=== PATIENT | male | born 1950 | race Caucasian/White ===

== ENCOUNTER 2017-01-23 13:56 | Emergency (ER) | payer OTHER ==
[~2017-01-23] VITALS: Ht 180.3 cm; Wt 92.5 kg
[~2017-01-23 13:56] MED LIST: BUME2TAB4 PO; CHOL100030 PO; LEVO88TA5 PO; POTA20TA83 PO; TIMO1DRO2 OP
--- NOTE | 2017-01-23 14:06 | NUR ---
Pt ambulatory to bed 2a, dr shaikh at bedside for exam.
[2017-01-23] MEDS ORDERED: HYDROCODONE/APAP 10-325 MG TABLET PO ONE (14:15)
[2017-01-23] MEDS ORDERED: CEPHALEXIN MONOHYDRATE 500 MG CAPSULE PO ONE (14:15)
[2017-01-23] MEDS ORDERED: CEPHALEXIN MONOHYDRATE 500 MG CAPSULE ONE (14:23)
[2017-01-23] MEDS ORDERED: HYDROCODONE/APAP 10-325 MG TABLET ONE (14:23)
[2017-01-23] MEDS ORDERED: SULFAMETH/TRIMETH 800/160 MG TABLET ONE (14:25)
[2017-01-23] MEDS ORDERED: SULFAMETH/TRIMETH 800/160 MG TABLET PO ONE (14:30)
--- NOTE | 2017-01-23 14:40 | NUR ---
POST OP SHOES AND HOSPITAL SOCKS PLACED ON THE LEFT FOOT PER MD ORDER.
--- NOTE | 2017-01-23 14:59 | NUR ---
Patient discharged to home in stable conditon. Written and verbal after care instructions given. Patient verbalizes understanding of instructions.PT WALKS IN STEADY GAIT.
== END 2017-01-23 15:00 | disposition home or self-care (01) ==
LOC: ER 13:56
DX: L03.116 Cellulitis of left lower limb (principal); E11.40 Type 2 diabetes mellitus with diabetic neuropathy, unspecified; F19.10 Other psychoactive substance abuse, uncomplicated
CPT/HCPCS: 73630; A4663

== ENCOUNTER 2017-01-24 14:05 | Outpatient (CLI) | payer MEDICARE, OTHER ==
[2017-01-24 14:52] LABS: ALBUMIN 4.2 g/dL (3.4-5.0); BILIRUBIN,TOTAL 0.5 mg/dL (0.2-1.0); CALCIUM 9.3 mg/dL (8.5-10.1); POTASSIUM 4.8 mmol/L (3.5-5.1); TOTAL PROTEIN, SERUM 8.1 g/dL (6.4-8.2)
[2017-01-24 14:53] LABS: CREATININE 2.2 mg/dL (0.6-1.3)
[2017-01-24 15:13] LABS: BASOPHILS # (AUTO) 0.1 K/uL (0.0-0.2); BASOPHILS % (AUTO) 0.5 % (0.0-2.0); EOSINOPHILS # (AUTO) 0.1 K/uL (0.0-0.7); HEMATOCRIT 39.3 % (40.0-50.0); HEMOGLOBIN 12.8 g/dL (14.0-18.0); LYMPHOCYTES # (AUTO) 1.8 K/uL (0.8-4.8); LYMPHOCYTES % (AUTO) 16.4 % (20.5-51.5); MEAN CORPUSCULAR HEMOGLOBIN 31.2 uug (27.0-31.0); MEAN CORPUSCULAR HGB CONC 33 g/dL (32.0-37.0); MEAN CORPUSCULAR VOLUME 96.2 fL (82.0-92.0); MONOCYTES # (AUTO) 1.1 K/uL (0.1-1.30); MONOCYTES % (AUTO) 10.1 % (0.0-11.0); PLATELET COUNT (AUTO) 300 K/uL (150-450); RED BLOOD CELL COUNT(AUTO) 4.08 MIL/uL (4.70-6.10); RED CELL DISTRIBUTION WIDTH 12.2 % (11.5-14.5); WHITE BLOOD COUNT (AUTO) 11.1 K/uL (4.0-11.2)
== END 2017-01-24 23:59 | disposition home or self-care (01) ==
LOC: LAB 14:05
DX: E11.9 Type 2 diabetes mellitus without complications (principal); L03.90 Cellulitis, unspecified
CPT/HCPCS: 36415; 85025

== ENCOUNTER 2017-02-15 12:18 | Emergency (ER) | payer MEDICARE, OTHER ==
[~2017-02-15] VITALS: Ht 180.3 cm; Wt 83.5 kg
[2017-02-15] MEDS ORDERED: METF10002 PO (12:33)
[2017-02-15] MEDS ORDERED: NAPR500T3 PO (12:33)
[2017-02-15] MEDS ORDERED: BUPR1FIL SL (12:33)
[2017-02-15] MEDS ORDERED: CHOL10005 PO (12:33)
[2017-02-15] MEDS ORDERED: POTA20PA3 PO (12:34)
--- NOTE | 2017-02-15 13:06 | NUR ---
PT IS SITTING ON THE BED READING HIS BOOK, AWAITING TO BE SEEN BY .
--- NOTE | 2017-02-15 14:29 | NUR ---
DR ZHOU AT THE BEDSIDE FOR EVAL AND EXAM.
[2017-02-15 15:00] LABS: BASOPHILS % (AUTO) 0.5 % (0.0-2.0); EOSINOPHILS # (AUTO) 0.1 K/uL (0.0-0.7); EOSINOPHILS % (AUTO) 0.8 % (0.0-7.0); MEAN CORPUSCULAR HGB CONC 33 g/dL (32.5-36.3); MEAN CORPUSCULAR VOLUME 95.8 fL (73.0-96.2); MONOCYTES # (AUTO) 0.6 K/uL (2.0-10.0); MONOCYTES % (AUTO) 6.5 % (0.0-11.0); NEUTROPHILS # (AUTO) 7.1 K/uL (1.8-8.9); NEUTROPHILS % (AUTO) 72.2 % (38.5-71.5); PLATELET COUNT (AUTO) 332 K/uL (152-348); RED CELL DISTRIBUTION WIDTH 13.8 % (12.1-16.2); WHITE BLOOD COUNT (AUTO) 9.8 K/uL (3.6-10.2)
[2017-02-15 15:02] LABS: CALCIUM 9.1 mg/dL (8.5-10.1); POTASSIUM 4.1 mmol/L (3.5-5.1)
[2017-02-15 15:03] LABS: CREATININE 1.7 mg/dL (0.6-1.3)
[2017-02-15 15:09] LABS: RED BLOOD CELL COUNT(AUTO) 2.08 MIL/uL (4.06-5.63)
[2017-02-15 15:12] LABS: HEMOGLOBIN 6.7 g/dL (12.5-16.3)
[2017-02-15 15:13] LABS: HEMATOCRIT 19.9 % (36.7-47.1)
[2017-02-15 15:17] LABS: ALBUMIN 3.9 g/dL (3.4-5.0); BILIRUBIN,DIRECT 0.1 mg/dL (0.0-0.2); BILIRUBIN,TOTAL 0.4 mg/dL (0.2-1.0); TOTAL PROTEIN, SERUM 7.1 g/dL (6.4-8.2)
[2017-02-15 15:47] LABS: BAND % (MANUAL) 2 % (0-10); EOSINOPHILS % (MANUAL) 1 % (0-8); LYMPHOCYTES % (MANUAL) 16 % (20-40); MONOCYTES % (MANUAL) 8 % (2-10); NEUTROPHILS % (MANUAL) 73 % (42-75); PLATELET ESTIMATE ADEQUATE
--- NOTE | 2017-02-15 16:18 | NUR ---
Patient discharged to home in stable conditon. Written and verbal after care instructions given. Patient verbalizes understanding of instructions.
[2017-02-15 16:19] VITALS: BP 120/55
[2017-02-15 17:29] LABS: FOLIC ACID 11.1 NG/ML (8.6-58.9)
== END 2017-02-15 16:20 | disposition home or self-care (01) ==
LOC: ER 12:18
DX: D64.9 Anemia, unspecified (principal); F19.10 Other psychoactive substance abuse, uncomplicated; E11.9 Type 2 diabetes mellitus without complications
CPT/HCPCS: 36415; 70030-TC; 71010; 82746; 83550; 85025; 85730; 86850; 86900; 86901; 93005; A4663

== ENCOUNTER 2017-02-16 12:46 | Inpatient (IN) | payer MEDICARE, OTHER ==
[~2017-02-16] VITALS: Ht 177.8 cm; Wt 83.5 kg
[2017-02-16] VITALS (11 sets, daily range): BP systolic 109–122; BP diastolic 52–68
[~2017-02-16 12:46] MED LIST changes: +BUPR1FIL SL; +CHOL10005 PO; +METF10002 PO; +NAPR500T3 PO; +POTA20PA3 PO
[2017-02-16] MEDS ORDERED: IV NORMAL SALINE 1000 ML BAG IV ONE (13:15)
--- NOTE | 2017-02-16 13:17 | NUR ---
Pt ambulatory to bed 3, dr waters at bedside for exam.
--- NOTE | 2017-02-16 13:17 | NUR ---
ekg. cxr done.
[2017-02-16] MEDS ORDERED: MORPHINE SULFATE 2 MG/1 ML DISP.SYRIN IV PRN ×2 (13:30→14:00)
[2017-02-16] MEDS ORDERED: ACETAMINOPHEN 325 MG TABLET PO PRN ×2 (13:30→14:00)
[2017-02-16] MEDS ORDERED: ONDANSETRON 4 MG/2 ML VIAL IV PRN ×2 (13:30→14:00)
[2017-02-16] MEDS ORDERED: INSULIN REGULAR, HUMAN 300 UNIT/3 ML VIAL SQ PRN (13:30)
[2017-02-16] MEDS ORDERED: DEXTROSE 50% 50 ML DISP.SYRIN IV PRN ×2 (13:30→14:00)
[2017-02-16 13:43] LABS: BASOPHILS % (AUTO) 0.4 % (0.0-2.0); EOSINOPHILS # (AUTO) 0.1 K/uL (0.0-0.7); EOSINOPHILS % (AUTO) 1.4 % (0.0-7.0); LYMPHOCYTES % (AUTO) 19.1 % (20.5-51.5); MEAN CORPUSCULAR HEMOGLOBIN 31.8 uug (23.8-33.4); MEAN CORPUSCULAR HGB CONC 33 g/dL (32.5-36.3); MEAN CORPUSCULAR VOLUME 96.3 fL (73.0-96.2); MONOCYTES # (AUTO) 0.8 K/uL (2.0-10.0); MONOCYTES % (AUTO) 7.5 % (0.0-11.0); NEUTROPHILS # (AUTO) 7.4 K/uL (1.8-8.9); NEUTROPHILS % (AUTO) 71.6 % (38.5-71.5); PLATELET COUNT (AUTO) 324 K/uL (152-348); WHITE BLOOD COUNT (AUTO) 10.3 K/uL (3.6-10.2)
[2017-02-16 13:46] LABS: CALCIUM 8.9 mg/dL (8.5-10.1); POTASSIUM 3.6 mmol/L (3.5-5.1)
--- NOTE | 2017-02-16 13:47 | NUR ---
Dede hooper in ED - 02/16/17 at 1357 by JOSÉ Patient discharged to home in stable conditon. Written and verbal after care instructions given. Patient verbalizes understanding of instructions.
[2017-02-16 13:50] LABS: CREATININE 1.7 mg/dL (0.6-1.3)
[2017-02-16 13:52] LABS: RED BLOOD CELL COUNT(AUTO) 1.93 MIL/uL (4.06-5.63)
[2017-02-16 13:53] LABS: HEMATOCRIT 18.5 % (36.7-47.1); HEMOGLOBIN 6.1 g/dL (12.5-16.3)
[2017-02-16 13:59] LABS: ALBUMIN 3.9 g/dL (3.4-5.0); BILIRUBIN,TOTAL 0.5 mg/dL (0.2-1.0); MAGNESIUM 1.7 mg/dL (1.8-2.4); PHOSPHOROUS 2.6 mg/dL (2.5-4.9)
[2017-02-16 14:18] LABS: *BILIRUBIN,URIN NEGATIVE (NEGATIVE); *BLOOD, URINE NEGATIVE (NEGATIVE); *CLARITY,URINE CLEAR (CLEAR); *COLOR,URINE YELLOW (YELLOW); *KETONES,URINE NEGATIVE (NEGATIVE); *PROTEIN,URINE NEGATIVE (NEGATIVE); *UROBILINOGEN,URINE 0.2 E.U./dl (NORMAL); LEUKOCYTE ESTERASE ,URINE NEGATIVE (NEGATIVE); NITRITE, URINE NEGATIVE (NEGATIVE); PH,URINE 5.5 (5.0-8.0); UGLUCOSE NEGATIVE (NEGATIVE)
[2017-02-16 14:19] LABS: EOSINOPHILS % (MANUAL) 2 % (0-8); LYMPHOCYTES % (MANUAL) 16 % (20-40); MONOCYTES % (MANUAL) 8 % (2-10); NEUTROPHILS % (MANUAL) 74 % (42-75); PLATELET ESTIMATE ADEQUATE
[2017-02-16 14:26] LABS: SQUAMOUS EPITHELIAL CELL,UR FEW /HPF (NONE SEEN)
[2017-02-16 14:27] LABS: MUCUS,URINE FEW /LPF (0-FEW)
--- NOTE | 2017-02-16 14:45 | NUR ---
NEW ADMISSION TO ROOM 220. PATIENT ALERT, AWAKE IN NO ACUTE DISTRESS.
[2017-02-16] MEDS: HYDROMORPHONE 1 MG/1 ML DISP.SYRIN IV PRN ×2 (15:08→21:09)
[2017-02-16] MEDS ORDERED: IPRATROPIUM BROMIDE 0.5 MG/2.5 ML NEBU NEB PRN (15:15)
[2017-02-16] MEDS ORDERED: ALBUTEROL SULFATE 2.5 MG/3 ML NEBU NEB PRN (15:15)
[2017-02-16] MEDS ORDERED: ALBUTEROL SULFATE 2.5 MG/ 0.5 ML NEBU NEB PRN (15:15)
[2017-02-16] MEDS ORDERED: MAGNESIUM SULFATE/D5W 100 ML IV SCH (15:15)
[2017-02-16] MEDS: IV 1/2NS 1000 ML 1,000 ML IV PRN (16:03)
[2017-02-16] MEDS: AZITHROMYCIN IV 500 MG in IV DEXTROSE 5% 250 ML IV SCH (16:08)
[2017-02-16] MEDS ORDERED: BLOOD SUGAR DIAGNOSTIC 1 EACH STRIP VI SCH (16:30)
[2017-02-16] MEDS ORDERED: Medication Not On Formulary EA (Metformin Hcl 1,000 MG) PO SCH (17:00)
[2017-02-16] MEDS: BLOOD SUGAR DIAGNOSTIC 1 EACH STRIP VI SCH ×2 (17:23→21:17)
[2017-02-16] MEDS ORDERED: METFORMIN HCL 500 MG TABLET PO SCH (18:00)
--- NOTE | 2017-02-16 18:26 | NUR ---
END OF SHIFT NOTE: PATIENT RECEIVING SECOND UNIT OF BLOOD NO A/Rs OBSERVED AT THIS TIME. VSS. YEBOAH IMPROVED. NO S/S OF DISTRESS OBSERVED. INDEPENDENT WITH ADLs. NEEDS MET BY STAFF.
[2017-02-16 20:37] LABS: *OCCULT BLOOD STOOL POSITIVE (NEGATIVE)
[2017-02-16] MEDS ORDERED: TIMOLOL MALEATE OP SCH ×2 (21:00)
[2017-02-16] MEDS ORDERED: TIMOLOL MALEATE XE 0.5% OPHT 5 ML BOTTLE EACHEYE SCH (21:00)
[2017-02-16] MEDS ORDERED: [UNRECOGNIZED DRUG - OTHER] OP SCH ×2 (21:00)
[2017-02-16 23:32] LABS: HEMATOCRIT 23.3 % (36.7-47.1); HEMOGLOBIN 7.9 g/dL (12.5-16.3)
--- NOTE | 2017-02-17 02:00 | NUR ---
PT TOLERATING THE 2ND UNIT OF BLOOD TRANSFUSION, NO ADVERSE EFFECTS, VSS,AFEBRILE. STOOL SEND AND RESULTED POSITIVE OCCULT BLOOD, POST TRANSFUSION HEMOGLOBIN IS 7.9. WILL NOTIFY MD IN AM, WILL CONTINUE TO MONITOR.
[2017-02-17] MEDS: HYDROMORPHONE 1 MG/1 ML DISP.SYRIN IV PRN ×4 (02:58→21:01)
[2017-02-17 04:56] VITALS: BP 102/61
[2017-02-17] MEDS ORDERED: LEVOTHYROXINE SODIUM 88 MCG TABLET PO SCH ×2 (07:00)
--- NOTE | 2017-02-17 07:00 | NUR ---
PT SLEPT WELL, VSS, AFEBRILE, NO ACUTE DISTRESS, NO MORE BM NOTED, MEDICATED WITH DILAUDID FOR HEADACHE WITH GOOD RELIEF.ALL NEEDS ATTENDED, CALL LIGHT AT REACHED.
[2017-02-17] MEDS: IV 1/2NS 1000 ML 1,000 ML IV PRN (07:10)
[2017-02-17] MEDS: PANTOPRAZOLE SODIUM 40 MG TABLET.DR PO SCH (07:10)
[2017-02-17] MEDS: BLOOD SUGAR DIAGNOSTIC 1 EACH STRIP VI SCH ×4 (07:13→20:55)
[2017-02-17 07:16] LABS: BASOPHILS % (AUTO) 0.5 % (0.0-2.0); EOSINOPHILS # (AUTO) 0.3 K/uL (0.0-0.7); LYMPHOCYTES # (AUTO) 2.3 K/uL (20.0-40.0); LYMPHOCYTES % (AUTO) 26.3 % (20.5-51.5); MEAN CORPUSCULAR HEMOGLOBIN 32.3 uug (23.8-33.4); MEAN CORPUSCULAR HGB CONC 34 g/dL (32.5-36.3); MEAN CORPUSCULAR VOLUME 94.7 fL (73.0-96.2); MONOCYTES # (AUTO) 0.9 K/uL (2.0-10.0); MONOCYTES % (AUTO) 10.1 % (0.0-11.0); NEUTROPHILS # (AUTO) 5.1 K/uL (1.8-8.9); NEUTROPHILS % (AUTO) 60.1 % (38.5-71.5); PLATELET COUNT (AUTO) 261 K/uL (152-348); RED CELL DISTRIBUTION WIDTH 15.3 % (12.1-16.2); WHITE BLOOD COUNT (AUTO) 8.6 K/uL (3.6-10.2)
[2017-02-17 07:29] LABS: ALBUMIN 3.2 g/dL (3.4-5.0); BILIRUBIN,TOTAL 0.7 mg/dL (0.2-1.0); CALCIUM 8.1 mg/dL (8.5-10.1); PHOSPHOROUS 2.9 mg/dL (2.5-4.9); POTASSIUM 3.9 mmol/L (3.5-5.1); TOTAL PROTEIN, SERUM 6.1 g/dL (6.4-8.2)
[2017-02-17 07:30] LABS: CREATININE 1.5 mg/dL (0.6-1.3)
[2017-02-17 07:38] LABS: THYROID STIMULATING HORMONE 6.467 mIU/mL (0.358-3.740)
[2017-02-17] MEDS ORDERED: GOLYTELY 4000 ML BOTTLE PO ONE (08:00)
[2017-02-17 08:25] LABS: HEMATOCRIT 21.1 % (36.7-47.1); HEMOGLOBIN 7.2 g/dL (12.5-16.3); RED BLOOD CELL COUNT(AUTO) 2.23 MIL/uL (4.06-5.63)
[2017-02-17] MEDS ORDERED: PANTOPRAZOLE SODIUM 40 MG TABLET.DR PO SCH (09:00)
[2017-02-17] MEDS ORDERED: CHOLECALCIFEROL 1,000 UNIT TABLET PO SCH (09:00)
[2017-02-17] MEDS: CHOLECALCIFEROL 1,000 UNIT TABLET PO SCH (09:27)
[2017-02-17] MEDS: METFORMIN HCL 500 MG TABLET PO SCH ×2 (11:30→18:00)
[2017-02-17 11:53] VITALS: BP 130/64
[2017-02-17 13:42] VITALS: BP 125/60
[2017-02-17 13:57] VITALS: BP 120/70
[2017-02-17 14:12] VITALS: BP 124/75
--- NOTE | 2017-02-17 14:28 | NUR ---
WOUND CARE CONSULT: PT PRESENTS AMBULATORY WITH TINY CALLUS ON LEFT PLANTAR TOE. NO DRAINAGE, TENDERNESS OR REDNESS NOTED. WILL SEE PRN. Addendum: 02/17/17 at 1429 by BRITTANY FONSECA RN Amended: Links added.
--- NOTE | 2017-02-17 14:50 | NUR ---
Patient unable to complete GoLytely. Patient continously encouraged and continues to state, "I can't drink that much".Patient becomes agitated on redirection.
[2017-02-17 17:02] LABS: HEMATOCRIT 27.9 % (36.7-47.1)
[2017-02-17 17:09] LABS: HEMOGLOBIN 9.4 g/dL (12.5-16.3)
[2017-02-17] MEDS: AZITHROMYCIN IV 500 MG in IV DEXTROSE 5% 250 ML IV SCH (17:42)
--- NOTE | 2017-02-17 18:32 | NUR ---
GLUCOPHAGE HELD. NO COVERAGE GIVEN FOR 137 BS. PATIENT NPO FOR EGD.
--- NOTE | 2017-02-17 20:00 | NUR ---
RECEIVED PATIENT AWAKE, SITTING AT BEDSIDE. PATIENT IS A/O X4. PATIENT VERBALIZED REGARDING SCHEDULED EGD AND COLONOSCOPY THAT HE WILL DO THE "EGD" IN AM BUT WILL NOT SIGN THE CONSENT FOR COLONOSCOPY UNTIL AFTER THE EGD IS DONE AND COMPLETE. PATIENT IS UNSURE ABOUT DOING THE "COLONOSCOPY" AT THIS TIME. FORESTRY SCIENTIST NOTIFIED. PATIENT AWARE HE WILL BE NPO AFTER MIDNIGHT. VERBALIZED UNDERSTANDING. WILL CONTINUE TO MONITOR. VSS. IVF INFUSING WELL TO RIGHT FA #20 GAUGE. NO C/O PAIN OR DISCOMFORT AT THIS TIME. NO RESP. DISTRESS NOTED. CALL LIGHT IN REACH. ALL NEEDS ATTENDED. WILL CONTINUE TO MONITOR.
[2017-02-17 20:32] VITALS: BP 110/63
[2017-02-17] MEDS: TIMOLOL MALEATE XE 0.5% OPHT 5 ML BOTTLE EACHEYE SCH (20:54)
[2017-02-17] MEDS: INSULIN REGULAR, HUMAN 300 UNIT/3 ML VIAL SQ PRN (20:56)
[2017-02-17 21:51] LABS: HEMATOCRIT 27.2 % (36.7-47.1); HEMOGLOBIN 9.1 g/dL (12.5-16.3)
[2017-02-18] MEDS: HYDROMORPHONE 1 MG/1 ML DISP.SYRIN IV PRN ×4 (03:39→22:07)
[2017-02-18] MEDS: IV 1/2NS 1000 ML 1,000 ML IV PRN (05:07)
[2017-02-18 05:39] VITALS: BP 112/63
[2017-02-18] MEDS: PANTOPRAZOLE SODIUM 40 MG TABLET.DR PO SCH (05:59)
[2017-02-18] MEDS: LEVOTHYROXINE SODIUM 100 MCG TABLET PO SCH (05:59)
[2017-02-18] MEDS: BLOOD SUGAR DIAGNOSTIC 1 EACH STRIP VI SCH ×4 (06:32→21:09)
--- NOTE | 2017-02-18 06:40 | NUR ---
PATIENT AWAKE IN BED. KEPT NPO ORDERED SINCE MIDNIGHT. VSS. IVF INFUSING WELL. CALL LIGHT IN REACH. ALL NEEDS ATTENDED. WILL CONTINUE TO MONITOR.
[2017-02-18 06:59] LABS: BASOPHILS % (AUTO) 0.5 % (0.0-2.0); EOSINOPHILS # (AUTO) 0.4 K/uL (0.0-0.7); EOSINOPHILS % (AUTO) 4.5 % (0.0-7.0); HEMATOCRIT 26.5 % (36.7-47.1); HEMOGLOBIN 9.3 g/dL (12.5-16.3); LYMPHOCYTES # (AUTO) 2.8 K/uL (20.0-40.0); LYMPHOCYTES % (AUTO) 33.3 % (20.5-51.5); MEAN CORPUSCULAR HEMOGLOBIN 32.7 uug (23.8-33.4); MEAN CORPUSCULAR HGB CONC 35 g/dL (32.5-36.3); MEAN CORPUSCULAR VOLUME 93.3 fL (73.0-96.2); MONOCYTES # (AUTO) 0.8 K/uL (2.0-10.0); MONOCYTES % (AUTO) 9.4 % (0.0-11.0); NEUTROPHILS # (AUTO) 4.4 K/uL (1.8-8.9); NEUTROPHILS % (AUTO) 52.3 % (38.5-71.5); PLATELET COUNT (AUTO) 298 K/uL (152-348); RED BLOOD CELL COUNT(AUTO) 2.84 MIL/uL (4.06-5.63); WHITE BLOOD COUNT (AUTO) 8.4 K/uL (3.6-10.2)
[2017-02-18 07:23] LABS: ALBUMIN 3.5 g/dL (3.4-5.0); BILIRUBIN,TOTAL 0.5 mg/dL (0.2-1.0); CALCIUM 8.6 mg/dL (8.5-10.1); MAGNESIUM 1.9 mg/dL (1.8-2.4); PHOSPHOROUS 3.1 mg/dL (2.5-4.9); POTASSIUM 4.5 mmol/L (3.5-5.1); TOTAL PROTEIN, SERUM 6.9 g/dL (6.4-8.2)
[2017-02-18 07:26] LABS: CREATININE 1.4 mg/dL (0.6-1.3)
[2017-02-18] MEDS ORDERED: IV NORMAL SALINE 1000 ML BAG IV ONE (07:36)
[2017-02-18] MEDS: METFORMIN HCL 500 MG TABLET PO SCH ×2 (08:00→17:13)
[2017-02-18] MEDS: CHOLECALCIFEROL 1,000 UNIT TABLET PO SCH (09:00)
[2017-02-18] MEDS ORDERED: LIDOCAINE HCL 1% 20 ML VIAL ONE (09:36)
[2017-02-18 11:33] VITALS: BP 101/66
[2017-02-18] MEDS ORDERED: PROPOFOL 200 MG/20 ML BOTTLE IV ONE (13:19)
[2017-02-18 15:27] VITALS: BP 97/49
[2017-02-18] MEDS ORDERED: AZITHROMYCIN 250 MG TABLET PO SCH (16:00)
[2017-02-18] MEDS ORDERED: PANTOPRAZOLE SODIUM 40 MG TABLET.DR PO SCH (17:00)
[2017-02-18] MEDS: INSULIN REGULAR, HUMAN 300 UNIT/3 ML VIAL SQ PRN (17:15)
[2017-02-18 19:00] VITALS: BP 100/49
[2017-02-18] MEDS: TIMOLOL MALEATE XE 0.5% OPHT 5 ML BOTTLE EACHEYE SCH (21:09)
[2017-02-18 21:18] LABS: HEMATOCRIT 27.1 % (36.7-47.1); HEMOGLOBIN 9.1 g/dL (12.5-16.3)
--- NOTE | 2017-02-18 22:00 | NUR ---
DILAUDID 1 MG IV ADMIN FOR C/O HEADACHE AND GENERALIZED DISCOMFORT.
[2017-02-19 04:00] VITALS: BP 107/62
--- NOTE | 2017-02-19 05:21 | NUR ---
PATIENT SLEEP INTERMITTENTLY,VITAL SIGNS WNL,NO ACUTE CHANGE IN CONDITION,NEEDS ATTENDED.
[2017-02-19] MEDS: LEVOTHYROXINE SODIUM 100 MCG TABLET PO SCH (06:19)
[2017-02-19] MEDS: HYDROMORPHONE 1 MG/1 ML DISP.SYRIN IV PRN (06:19)
[2017-02-19] MEDS: BLOOD SUGAR DIAGNOSTIC 1 EACH STRIP VI SCH (06:28)
[2017-02-19] MEDS ORDERED: PANTOPRAZOLE SODIUM 40 MG TABLET.DR PO SCH (07:00)
[2017-02-19 07:28] LABS: BASOPHILS % (AUTO) 0.6 % (0.0-2.0); EOSINOPHILS # (AUTO) 0.3 K/uL (0.0-0.7); EOSINOPHILS % (AUTO) 4.6 % (0.0-7.0); HEMATOCRIT 25.9 % (36.7-47.1); HEMOGLOBIN 8.9 g/dL (12.5-16.3); LYMPHOCYTES # (AUTO) 2.3 K/uL (20.0-40.0); LYMPHOCYTES % (AUTO) 35.9 % (20.5-51.5); MEAN CORPUSCULAR HEMOGLOBIN 32.3 uug (23.8-33.4); MEAN CORPUSCULAR HGB CONC 34 g/dL (32.5-36.3); MEAN CORPUSCULAR VOLUME 94.4 fL (73.0-96.2); MONOCYTES # (AUTO) 0.6 K/uL (2.0-10.0); MONOCYTES % (AUTO) 9.4 % (0.0-11.0); NEUTROPHILS # (AUTO) 3.1 K/uL (1.8-8.9); NEUTROPHILS % (AUTO) 49.5 % (38.5-71.5); PLATELET COUNT (AUTO) 286 K/uL (152-348); RED BLOOD CELL COUNT(AUTO) 2.75 MIL/uL (4.06-5.63); RED CELL DISTRIBUTION WIDTH 15.6 % (12.1-16.2); WHITE BLOOD COUNT (AUTO) 6.3 K/uL (3.6-10.2)
[2017-02-19] MEDS: CHOLECALCIFEROL 1,000 UNIT TABLET PO SCH (08:54)
[2017-02-19] MEDS: METFORMIN HCL 500 MG TABLET PO SCH (08:54)
[2017-02-19 08:59] LABS: BILIRUBIN,TOTAL 0.2 mg/dL (0.2-1.0); CALCIUM 8.5 mg/dL (8.5-10.1); MAGNESIUM 1.9 mg/dL (1.8-2.4); PHOSPHOROUS 3.5 mg/dL (2.5-4.9); POTASSIUM 4.1 mmol/L (3.5-5.1); TOTAL PROTEIN, SERUM 6.2 g/dL (6.4-8.2)
[2017-02-19] MEDS: INSULIN REGULAR, HUMAN 300 UNIT/3 ML VIAL SQ PRN (09:05)
[2017-02-19 09:07] LABS: CREATININE 1.4 mg/dL (0.6-1.3)
--- NOTE | 2017-02-19 11:03 | NUR ---
The patient will be discharged today back home [[address], [place] [address]] per Riddhi Gore NP. 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 This ore bridge operator tried to speak to him about his discharge but he was on the phone and packing his suitcase already. His RN, An, is aware of his discharge plan.
[2017-02-19 11:55] VITALS: BP 133/68
[2017-02-19] MEDS ORDERED: LEVO100T10 PO (12:14)
[2017-02-19] MEDS ORDERED: PANT40TA2 PO (12:14)
--- NOTE | 2017-02-19 13:00 | NUR ---
Veronica MAURICE STORE SALES CONSULTANT. IN TO SEE PT. AND REVIEW HOME INSTRUCTIONS. IV D/C'D. CD OF X-RAYS GIVEN TO PT. PHARMACIST--ARMANI LOCKE TO REVIEW AND EXPLAIN HOME MEDS. ALL HOME INSTRUCTIONS PRECAUTIONS/SIGNS/SYMPTOMS REVIEWED WITH PT. DISCHARGED HOME.
[2017-02-19] MEDS ORDERED: LIDOCAINE HCL 1% 20 ML VIAL MC ONE (13:19)
== END 2017-02-19 13:20 | disposition home or self-care (01) | DRG 377 ==
LOC: ER 12:46 → MED 14:18
PROVIDERS: ADMIT Nurse Practitioner Acute Care; ATTEND Internal Medicine
PROC: 30233N1 Transfusion of Nonautologous Red Blood Cells into Peripheral Vein, Percutaneous Approach (ICD-10-PCS; 2017-02-16)
PROC: 0DB68ZX Excision of Stomach, Via Natural or Artificial Opening Endoscopic, Diagnostic (ICD-10-PCS; principal; 2017-02-18 10:04)
DX: K25.0 Acute gastric ulcer with hemorrhage (principal); N17.0 Acute kidney failure with tubular necrosis; J44.0 Chronic obstructive pulmonary disease with (acute) lower respiratory infection; I13.0 Hypertensive heart and chronic kidney disease with heart failure and stage 1 through stage 4 chronic kidney disease, or unspecified chronic kidney disease; F11.20 Opioid dependence, uncomplicated; D64.9 Anemia, unspecified; J20.9 Acute bronchitis, unspecified; E86.0 Dehydration; I50.9 Heart failure, unspecified; N18.9 Chronic kidney disease, unspecified; E11.22 Type 2 diabetes mellitus with diabetic chronic kidney disease; E11.42 Type 2 diabetes mellitus with diabetic polyneuropathy; E03.9 Hypothyroidism, unspecified; F41.9 Anxiety disorder, unspecified; E11.65 Type 2 diabetes mellitus with hyperglycemia; F32.9 Major depressive disorder, single episode, unspecified; J45.909 Unspecified asthma, uncomplicated; M19.90 Unspecified osteoarthritis, unspecified site; E83.42 Hypomagnesemia; Z82.49 Family history of ischemic heart disease and other diseases of the circulatory system; H40.9 Unspecified glaucoma; Z79.4 Long term (current) use of insulin; Z79.84 Long term (current) use of oral hypoglycemic drugs; K21.9 Gastro-esophageal reflux disease without esophagitis; R00.1 Bradycardia, unspecified; Z87.442 Personal history of urinary calculi; H26.9 Unspecified cataract; G89.29 Other chronic pain; R60.9 Edema, unspecified; T39.315A Adverse effect of propionic acid derivatives, initial encounter; Y92.009 Unspecified place in unspecified non-institutional (private) residence as the place of occurrence of the external cause; T50.1X5A Adverse effect of loop [high-ceiling] diuretics, initial encounter
CPT/HCPCS: 36415; 70030-TC; 71010; 82746; 83550; 83605; 83735; 84100; 84443; 85018; 85025; 85730; 86850; 86900; 86901; 86920; 87040; 87086; 93005; 93307; 97001; A4217; A4663; J0456; J1170; J1815; J2270; J3475; J3490; J3590; J7030; J7040; J7060; P9016-BL; P9021; Q0144

== ENCOUNTER 2017-10-14 04:54 | Emergency (ER) | payer MEDICARE, OTHER ==
[~2017-10-14] VITALS: Ht 177.8 cm; Wt 86.6 kg
[~2017-10-14 04:54] MED LIST changes: -BUME2TAB4 PO; -BUPR1FIL SL; -CHOL100030 PO; +CHOL100045 PO; -CHOL10005 PO; +LEVO100T10 PO; -LEVO88TA5 PO; -NAPR500T3 PO; +PANT40TA2 PO; -POTA20PA3 PO; -POTA20TA83 PO
--- NOTE | 2017-10-14 05:30 | NUR ---
Dr. Andrew at bedside for MSE, awaiting further orders.
[2017-10-14] MEDS ORDERED: ONDANSETRON ODT 4 MG TAB.RAPDIS SL ONE (05:45)
[2017-10-14] MEDS ORDERED: HYDROCODONE/APAP 10-325 MG TABLET PO ONE (05:45)
--- NOTE | 2017-10-14 05:48 | NUR ---
Pt medicated for discomfort, will monitor for effects of medication. Pt resting in position of comfort for self.
[2017-10-14] MEDS ORDERED: ONDANSETRON ODT 4 MG TAB.RAPDIS ONE (06:00)
[2017-10-14] MEDS ORDERED: HYDROCODONE/APAP 10-325 MG TABLET ONE (06:01)
--- NOTE | 2017-10-14 06:08 | NUR ---
Pt cont to c/o severe pain. notified and was into speak with pt. Pt stable for discharge per Dr. Andrew. Pt given ACI. Pt verbalized understanding of dc instructions. Pt ambulated out of er with slow shuffled gait to wr to wait for ride home
[2017-10-14 06:14] VITALS: BP 157/83
== END 2017-10-14 06:14 | disposition home or self-care (01) ==
LOC: ER 05:01
DX: M10.9 Gout, unspecified (principal); E11.40 Type 2 diabetes mellitus with diabetic neuropathy, unspecified
CPT/HCPCS: 99283; A4663; Q0162

== ENCOUNTER 2017-10-14 06:56 | Emergency (ER) | payer MEDICARE, OTHER ==
[~2017-10-14] VITALS: Ht 177.8 cm; Wt 86.6 kg
--- NOTE | 2017-10-14 07:07 | NUR ---
Dr. Mcnulty at bedside for MSE
[2017-10-14] MEDS ORDERED: PROMETHAZINE HCL 25 MG/1 ML VIAL IM ONE (07:15)
[2017-10-14] MEDS ORDERED: HYDROMORPHONE 1 MG/1 ML DISP.SYRIN IM ONE (07:15)
--- NOTE | 2017-10-14 07:20 | NUR ---
Report given to HETAL Argueta. I relinquish care of pt at this time.
[2017-10-14] MEDS ORDERED: HYDROMORPHONE 2 MG/1 ML DISP.SYRIN ONE (07:30)
[2017-10-14] MEDS ORDERED: PROMETHAZINE HCL 25 MG/1 ML VIAL ONE (07:30)
--- NOTE | 2017-10-14 07:31 | NUR ---
Patient is resting comfortably on gurney with affected lower extremity elevated. Patient is watching bedside TV, decreased pains expressed after the pain medicine. Patient discharged to home in stable conditon. Written and verbal after care instructions given to patient. Patient verbalizes understanding of instructions. Patient says that he is calling "uber" to go home.
== END 2017-10-14 07:46 | disposition home or self-care (01) ==
LOC: ER 07:00
DX: M10.071 Idiopathic gout, right ankle and foot (principal); E11.21 Type 2 diabetes mellitus with diabetic nephropathy
CPT/HCPCS: A4663; J1170; J2550

== ENCOUNTER 2017-12-09 22:46 | Inpatient (IN) | payer MEDICARE, OTHER ==
[~2017-12-09] VITALS: Ht 177.8 cm; Wt 87.1 kg
[2017-12-09] MEDS ORDERED: POTA10TA15 PO (23:29)
[2017-12-09] MEDS ORDERED: ALLO300T2 PO (23:29)
[2017-12-09] MEDS ORDERED: BUME1TAB4 PO (23:29)
[2017-12-09] MEDS ORDERED: ATOR10TA PO (23:29)
[2017-12-09] MEDS ORDERED: IRON PO (23:29)
[2017-12-09] MEDS ORDERED: VALA500T34 PO (23:29)
[2017-12-10] MEDS ORDERED: ONDANSETRON 4 MG/2 ML VIAL ONE ×2 (00:12→04:46)
[2017-12-10] MEDS ORDERED: HYDROMORPHONE 2 MG/1 ML DISP.SYRIN ONE ×2 (00:12→01:05)
[2017-12-10 00:36] LABS: CREATININE 2.1 mg/dL (0.6-1.3)
[2017-12-10 00:41] LABS: BILIRUBIN,DIRECT 0.1 mg/dL (0.0-0.2); BILIRUBIN,TOTAL 0.4 mg/dL (0.2-1.0); TOTAL PROTEIN, SERUM 7.6 g/dL (6.4-8.2)
[2017-12-10 00:44] LABS: BASOPHILS % (AUTO) 0.5 % (0.0-2.0); EOSINOPHILS # (AUTO) 0.1 K/uL (0.0-0.7); EOSINOPHILS % (AUTO) 1.4 % (0.0-7.0); HEMATOCRIT 35.5 % (36.7-47.1); HEMOGLOBIN 12.1 g/dL (12.5-16.3); LYMPHOCYTES # (AUTO) 1.3 K/uL (20.0-40.0); LYMPHOCYTES % (AUTO) 15.4 % (20.5-51.5); MEAN CORPUSCULAR HEMOGLOBIN 33.3 uug (23.8-33.4); MEAN CORPUSCULAR HGB CONC 34 g/dL (32.5-36.3); MEAN CORPUSCULAR VOLUME 97.7 fL (73.0-96.2); MONOCYTES # (AUTO) 0.9 K/uL (2.0-10.0); MONOCYTES % (AUTO) 10.4 % (0.0-11.0); NEUTROPHILS # (AUTO) 6.2 K/uL (1.8-8.9); NEUTROPHILS % (AUTO) 72.3 % (38.5-71.5); PLATELET COUNT (AUTO) 245 K/uL (152-348); RED BLOOD CELL COUNT(AUTO) 3.63 MIL/uL (4.06-5.63); WHITE BLOOD COUNT (AUTO) 8.6 K/uL (3.6-10.2)
[2017-12-10 00:45] LABS: *BILIRUBIN,URIN NEGATIVE (NEGATIVE); *BLOOD, URINE 2+ (NEGATIVE); *CLARITY,URINE CLEAR (CLEAR); *COLOR,URINE YELLOW (YELLOW); *KETONES,URINE NEGATIVE (NEGATIVE); *PROTEIN,URINE NEGATIVE (NEGATIVE); *UROBILINOGEN,URINE 0.2 E.U./dl (NORMAL); LEUKOCYTE ESTERASE ,URINE NEGATIVE (NEGATIVE); NITRITE, URINE NEGATIVE (NEGATIVE); PH,URINE 5.5 (5.0-8.0); UGLUCOSE NEGATIVE (NEGATIVE)
[2017-12-10] MEDS ORDERED: HYDROMORPHONE 1 MG/1 ML DISP.SYRIN IV ONE ×2 (00:45)
[2017-12-10] MEDS ORDERED: MORPHINE SULFATE 10 MG/1 ML DISP.SYRIN IV ONE ×2 (01:15→04:00)
[2017-12-10] MEDS ORDERED: IV NORMAL SALINE 1000 ML BAG IV ONE ×2 (01:15)
[2017-12-10 01:23] LABS: BACTERIA,URINE NONE SEEN /HPF (NONE SEEN); RBC,URINE 20-50 /HPF (0-3); SQUAMOUS EPITHELIAL CELL,UR FEW /HPF (NONE SEEN); WBC,URINE 0-3 /HPF (0-3)
[2017-12-10] MEDS ORDERED: MORPHINE SULFATE 4 MG/1 ML DISP.SYRIN ONE ×2 (01:29→04:32)
[2017-12-10] MEDS ORDERED: TAMSULOSIN HCL 0.4 MG CAP.SR.24H PO ONE (03:00)
[2017-12-10 03:49] LABS: CREATININE 2.2 mg/dL (0.6-1.3); POTASSIUM 4.6 mmol/L (3.5-5.1)
[2017-12-10] MEDS ORDERED: ONDANSETRON 4 MG/2 ML VIAL IV ONE ×2 (04:00)
[2017-12-10] MEDS ORDERED: TAMSULOSIN HCL 0.4 MG CAP.SR.24H ONE (04:01)
[2017-12-10] MEDS ORDERED: MORPHINE SULFATE 2 MG/1 ML DISP.SYRIN ONE (04:35)
--- NOTE | 2017-12-10 04:43 | NUR ---
PT HAS HAD TWO EPISODES OF KIDNEY STONES IN THE PAST AND PRESENTS W/REPORTEDLY SIMILAR SYMPTOMS. DILAUDID 1 MG X 2 WAS INEFFECTIVE FOR PAIN RELIEF. MORPHINE 10 MG WAS EFFECTIVE. IMAGING DETECTED STONE. LAB WORK SHOWED ELEVATED CREATININE OF 2.1. CHEMISTRY REPEATED W/CREATININE RESULTED AT 2.2. DUE TO NEW FINDING OF KIDNEY ISSUE. PT IS FOR ADMIT. PRE-ADMIT EKG SHOWED A HEART RATE OF 41 READ SINUS BRADYCARDIA. OF NOTE, PT REPORTS HIS BASELINE HR IS 35. PT WAS INSTRUCTED TO VOID IN THE URINAL. ALL URINE WAS STRAINED. NO STONE WAS FOUND. PT HAD DIFFICULY VOIDING. TAMSULOSIN GIVEN.
[2017-12-10] MEDS ORDERED: ONDANSETRON 4 MG/2 ML VIAL IV PRN (05:45)
[2017-12-10] MEDS ORDERED: DEXTROSE 50% 50 ML DISP.SYRIN IV PRN (05:45)
[2017-12-10] MEDS ORDERED: MORPHINE SULFATE 2 MG/1 ML DISP.SYRIN IV PRN (05:45)
[2017-12-10] MEDS ORDERED: ACETAMINOPHEN 325 MG TABLET PO PRN (05:45)
[2017-12-10] MEDS ORDERED: BISACODYL 10 MG SUPP.RECT RC PRN (05:45)
[2017-12-10] MEDS ORDERED: TEMAZEPAM 15 MG CAPSULE PO PRN (05:45)
[2017-12-10] MEDS ORDERED: hydrALAZINE HCL 25 MG TABLET PO PRN (05:45)
[2017-12-10] MEDS ORDERED: PANTOPRAZOLE SODIUM 40 MG TABLET.DR PO SCH (07:00)
--- NOTE | 2017-12-10 07:14 | NUR ---
SBAR REPORT TO CHAR Ramos
--- NOTE | 2017-12-10 07:18 | NUR ---
10mg IV morphine was already given earlier by previous nurse & per hands off report, the nursing supervisor fertilizer took the medicine from the "stock cabinet".
[2017-12-10] MEDS: PANTOPRAZOLE SODIUM 40 MG TABLET.DR PO SCH (07:40)
[2017-12-10] MEDS: LEVOTHYROXINE SODIUM 100 MCG TABLET PO SCH (07:40)
--- NOTE | 2017-12-10 07:41 | NUR ---
Oral thyroid medicine & pantoprazole are not verified by inpatient [email or web address] time, endorsed to inpatient nurse Belia accordingly
[2017-12-10] MEDS: BLOOD SUGAR DIAGNOSTIC 1 EACH STRIP VI SCH ×4 (07:43→20:19)
--- NOTE | 2017-12-10 07:50 | NUR ---
Received report form ER
[2017-12-10 08:10] VITALS: BP 120/76
--- NOTE | 2017-12-10 08:10 | NUR ---
Received client via wheelchair from ER. Client is awake, alert and oriented times 4. No signs and symptoms of SOB or distress. Client is in pain stating 10/10, discomfort noted. Client is being admitted to Tele with diagnosis of Kidney stones. VS WNL. Client was advice to change into gown for more comfort. Client states and noted with bilateral cellulitis. Bed at lowest position for safety and call light within reach for assistance
--- NOTE | 2017-12-10 08:40 | NUR ---
COMMERCIAL MANAGEMENT ACCOUNTANT aware of client's arrival to the unit and aware of client's concern about previous home medication. COMMERCIAL MANAGEMENT ACCOUNTANT will reconcile home medication
[2017-12-10] MEDS ORDERED: TEMAZEPAM 7.5 MG CAPSULE PO PRN (09:00)
--- NOTE | 2017-12-10 09:00 | NUR ---
Accidently clicked twice giving Devine at 0901 and 0902 on the eMAR. Only 1 tab given, not two tabs.
[2017-12-10] MEDS: HYDROCODONE/APAP 5-325MG TABLET PO PRN ×3 (09:01→14:30)
[2017-12-10] MEDS: MIRALAX 17 GM POWD.PACK PO SCH (09:02)
[2017-12-10] MEDS: TAMSULOSIN HCL 0.4 MG CAP.SR.24H PO SCH ×2 (09:02→20:11)
[2017-12-10] MEDS: CHOLECALCIFEROL 1,000 UNIT TABLET PO SCH (09:14)
[2017-12-10] MEDS: MORPHINE SULFATE 4 MG/1 ML DISP.SYRIN IV PRN ×5 (09:20→23:16)
[2017-12-10] MEDS: IV 1/2NS 1000 ML 1,000 ML IV PRN ×2 (10:27→22:47)
--- NOTE | 2017-12-10 10:30 | NUR ---
IV hydration started
--- NOTE | 2017-12-10 11:00 | NUR ---
DVT pumps in place and running
[2017-12-10 11:40] VITALS: BP 115/57
[2017-12-10 15:46] VITALS: BP 106/55
--- NOTE | 2017-12-10 18:20 | NUR ---
End of shift notes: Client has been compliant with all nursing care. Pain medications given as ordered and at the client's request. Client states pain has subsided significantly since being admitted to the ER. Client is ambulatory to the . No problems with urination. Noted the client to eat well during meals; B-L-D. IV line in tact and patent with hydration running at this time. Client is able to verbalize all needs, AOX4. Bed is at the lowest position a for safety and call light within reach for assistance.
[2017-12-10] MEDS: ATORVASTATIN 10 MG TABLET PO SCH (20:11)
[2017-12-10 20:17] VITALS: BP 124/57
[2017-12-10] MEDS: DOCUSATE SODIUM 100 MG CAPSULE PO SCH (20:18)
[2017-12-10] MEDS: INSULIN REGULAR, HUMAN 300 UNIT/3 ML VIAL SQ PRN (20:23)
[2017-12-10] MEDS ORDERED: DOCUSATE SODIUM 250 MG CAPSULE PO SCH (21:00)
[2017-12-10] MEDS ORDERED: TIMOLOL MALEATE XE 0.5% OPHT 5 ML BOTTLE EACHEYE SCH (21:00)
[2017-12-11 00:11] VITALS: BP 120/52
[2017-12-11] MEDS: MORPHINE SULFATE 4 MG/1 ML DISP.SYRIN IV PRN ×6 (02:26→23:17)
[2017-12-11 04:00] VITALS: BP 126/65
[2017-12-11] MEDS: LEVOTHYROXINE SODIUM 100 MCG TABLET PO SCH (06:34)
[2017-12-11] MEDS: PANTOPRAZOLE SODIUM 40 MG TABLET.DR PO SCH (06:34)
[2017-12-11] MEDS: BLOOD SUGAR DIAGNOSTIC 1 EACH STRIP VI SCH ×4 (06:38→20:07)
[2017-12-11 06:46] LABS: BASOPHILS % (AUTO) 0.3 % (0.0-2.0); EOSINOPHILS # (AUTO) 0.2 K/uL (0.0-0.7); EOSINOPHILS % (AUTO) 2.5 % (0.0-7.0); HEMATOCRIT 32.2 % (36.7-47.1); HEMOGLOBIN 10.7 g/dL (12.5-16.3); LYMPHOCYTES # (AUTO) 1.7 K/uL (20.0-40.0); LYMPHOCYTES % (AUTO) 24.8 % (20.5-51.5); MEAN CORPUSCULAR HEMOGLOBIN 32.8 uug (23.8-33.4); MEAN CORPUSCULAR HGB CONC 33 g/dL (32.5-36.3); MEAN CORPUSCULAR VOLUME 98.6 fL (73.0-96.2); MONOCYTES # (AUTO) 0.9 K/uL (2.0-10.0); MONOCYTES % (AUTO) 13.9 % (0.0-11.0); NEUTROPHILS # (AUTO) 3.9 K/uL (1.8-8.9); NEUTROPHILS % (AUTO) 58.5 % (38.5-71.5); PLATELET COUNT (AUTO) 174 K/uL (152-348); RED BLOOD CELL COUNT(AUTO) 3.26 MIL/uL (4.06-5.63); WHITE BLOOD COUNT (AUTO) 6.7 K/uL (3.6-10.2)
[2017-12-11 06:56] LABS: BILIRUBIN,TOTAL 0.6 mg/dL (0.2-1.0); CREATININE 2.7 mg/dL (0.6-1.3); MAGNESIUM 2.1 mg/dL (1.8-2.4); PHOSPHOROUS 3.7 mg/dL (2.5-4.9); POTASSIUM 4.7 mmol/L (3.5-5.1); TOTAL PROTEIN, SERUM 6.6 g/dL (6.4-8.2)
--- NOTE | 2017-12-11 08:00 | NUR ---
Pt's urine being strained for kidney stones. Pt agreeable with plan of care. Awaiting Dr Guerrero for consult. Charge nurse made a courtesy call and remind Dr guerrero to see patient. Call light is within reach.
[2017-12-11] MEDS: CHOLECALCIFEROL 1,000 UNIT TABLET PO SCH (08:20)
[2017-12-11] MEDS: TAMSULOSIN HCL 0.4 MG CAP.SR.24H PO SCH ×2 (08:20→19:45)
[2017-12-11] MEDS: MIRALAX 17 GM POWD.PACK PO SCH (08:20)
[2017-12-11 10:56] VITALS: BP 133/60
[2017-12-11] MEDS: IV 1/2NS 1000 ML 1,000 ML IV PRN ×3 (11:57→23:17)
[2017-12-11] MEDS: INSULIN REGULAR, HUMAN 300 UNIT/3 ML VIAL SQ PRN (12:00)
[2017-12-11 15:12] VITALS: BP 128/46
--- NOTE | 2017-12-11 18:00 | NUR ---
Pt was seen by DR Rudd. aware of pt's slow hr and has been asymptomatic. New order received to d/c timolol. Pt is in no acute distress
[2017-12-11] MEDS: ATORVASTATIN 10 MG TABLET PO SCH (19:45)
[2017-12-11] MEDS: DOCUSATE SODIUM 100 MG CAPSULE PO SCH (19:45)
--- NOTE | 2017-12-11 19:47 | NUR ---
Received patient sitting in bed awake alert & oriented, irritable c/o right flank discomfort requesting pain meds. Tele show sinus kathi 49, patient stated he exercise a lot & his heart rate is always low as 40s to 50s. No signs of distress noted. Dr. Guerrero in room assessing this patient. Morphine 4mg IVP adm as ordered. Routine night meds given, patient tolerated. Will continue to monitor.
[2017-12-11 20:00] VITALS: BP 115/61
[2017-12-11 23:26] VITALS: BP 127/43
[2017-12-12] MEDS: MORPHINE SULFATE 4 MG/1 ML DISP.SYRIN IV PRN ×8 (02:27→23:33)
[2017-12-12 04:00] VITALS: BP 125/60
[2017-12-12] MEDS: PANTOPRAZOLE SODIUM 40 MG TABLET.DR PO SCH (06:19)
[2017-12-12] MEDS: LEVOTHYROXINE SODIUM 100 MCG TABLET PO SCH (06:19)
[2017-12-12] MEDS: BLOOD SUGAR DIAGNOSTIC 1 EACH STRIP VI SCH ×4 (06:36→21:08)
--- NOTE | 2017-12-12 06:40 | NUR ---
RESIDENT REMAINS BRADYCARDIC WITH HR IN THE 40'S SINUS RHYTHM, NO S/S OF DISTRESS. PATIENT IS STABLE AT THIS TIME.
[2017-12-12 06:46] LABS: CREATININE 2.9 mg/dL (0.6-1.3); MAGNESIUM 2.2 mg/dL (1.8-2.4); PHOSPHOROUS 4.1 mg/dL (2.5-4.9); POTASSIUM 4.4 mmol/L (3.5-5.1)
[2017-12-12 06:49] LABS: BASOPHILS % (AUTO) 0.4 % (0.0-2.0); EOSINOPHILS # (AUTO) 0.1 K/uL (0.0-0.7); EOSINOPHILS % (AUTO) 2.3 % (0.0-7.0); HEMATOCRIT 30.7 % (36.7-47.1); HEMOGLOBIN 10.4 g/dL (12.5-16.3); LYMPHOCYTES # (AUTO) 1.5 K/uL (20.0-40.0); LYMPHOCYTES % (AUTO) 23.3 % (20.5-51.5); MEAN CORPUSCULAR HEMOGLOBIN 33.3 uug (23.8-33.4); MEAN CORPUSCULAR HGB CONC 34 g/dL (32.5-36.3); MEAN CORPUSCULAR VOLUME 98.1 fL (73.0-96.2); MONOCYTES # (AUTO) 0.8 K/uL (2.0-10.0); MONOCYTES % (AUTO) 12.6 % (0.0-11.0); NEUTROPHILS # (AUTO) 3.9 K/uL (1.8-8.9); NEUTROPHILS % (AUTO) 61.4 % (38.5-71.5); PLATELET COUNT (AUTO) 166 K/uL (152-348); RED BLOOD CELL COUNT(AUTO) 3.13 MIL/uL (4.06-5.63); WHITE BLOOD COUNT (AUTO) 6.4 K/uL (3.6-10.2)
[2017-12-12] MEDS ORDERED: PROPOFOL 200 MG/20 ML BOTTLE IV ONE (07:28)
[2017-12-12] MEDS ORDERED: IV NORMAL SALINE 1000 ML BAG IV ONE (07:28)
[2017-12-12] MEDS ORDERED: CEFAZOLIN 1 G VIAL MC ONE (07:28)
[2017-12-12] MEDS ORDERED: DEXAMETHASONE SOD PHOSPHATE 4 MG INJ IV ONE (07:28)
[2017-12-12] MEDS ORDERED: ONDANSETRON 4 MG/2 ML VIAL IV ONE (07:28)
[2017-12-12] MEDS ORDERED: LIDOCAINE HCL 1% 20 ML VIAL MC ONE (07:28)
--- NOTE | 2017-12-12 08:00 | NUR ---
Pt agreeable on staying NPO. Pt for cystocopy at afternoon. Pt is in no acute distress. Call light is within reach.
[2017-12-12] MEDS: TAMSULOSIN HCL 0.4 MG CAP.SR.24H PO SCH ×2 (08:14→20:28)
[2017-12-12] MEDS: CHOLECALCIFEROL 1,000 UNIT TABLET PO SCH (08:14)
[2017-12-12] MEDS: MIRALAX 17 GM POWD.PACK PO SCH (09:00)
[2017-12-12 11:31] VITALS: BP 147/48
[2017-12-12] MEDS ORDERED: IOHEXOL 300MG/ML 50 ML VIAL ONE (11:36)
--- NOTE | 2017-12-12 12:00 | NUR ---
Spoke with stem setter re: new event on tele monitor regarding a retrograde P wave. Per DR zarco walk pt and see if pt's hr goes up to 70's and will be cleared for cystoscopy. Ambulated pt around hallway and pt's rhythm was SNR on 70's. preop checklist done. Consent signed. BS taken and MS given prior to being picked up by Surgery report given to surgery team
[2017-12-12] MEDS ORDERED: FENTANYL CITRATE 100 MCG/2 ML AMPUL ONE ×2 (12:19→13:16)
[2017-12-12] MEDS ORDERED: MIDAZOLAM HCL 2 MG/2 ML VIAL ONE (12:19)
[2017-12-12] MEDS: PHENAZOPYRIDINE HCL 100 MG TABLET PO PRN ×2 (14:37→21:33)
[2017-12-12 15:20] VITALS: BP 115/55
[2017-12-12 15:45] VITALS: BP 130/54
[2017-12-12] MEDS ORDERED: HYDROMORPHONE 1 MG/1 ML DISP.SYRIN IV ONE (17:00)
[2017-12-12] MEDS: INSULIN REGULAR, HUMAN 300 UNIT/3 ML VIAL SQ PRN ×2 (17:10→21:09)
[2017-12-12] MEDS ORDERED: HYDROMORPHONE 2 MG/1 ML DISP.SYRIN IV ONE (17:15)
--- NOTE | 2017-12-12 18:00 | NUR ---
DR zarco d/c ivf secondary to pt's legs are more swollen and concerned about congestion.
--- NOTE | 2017-12-12 18:00 | NUR ---
pt c/o excruciating pain on abd. DR mcgowan ok to give one time dilaudid for pain. Pt has scant bloody show on penile head. Pt able to urinate. " i feel worse that when i first came in" Pyridium given as well for pain while urinating. Call light is within reach.
--- NOTE | 2017-12-12 19:30 | NUR ---
PT IN ROOM ALERT AWAKE IN NO ACUTE DISTRESS. REQUESTING NEXT PAIN MEDICATION AVAILABLE AT THIS TIME. PT C/O PAIN TO LOWER ABDOMINAL AREA. V/S ARE WNL. CONTINUE TO MONITOR. CALL LIGHT PLACED WITHIN REACH.
[2017-12-12 20:00] VITALS: BP 118/38
[2017-12-12] MEDS: DOCUSATE SODIUM 100 MG CAPSULE PO SCH (20:28)
[2017-12-12] MEDS: ATORVASTATIN 10 MG TABLET PO SCH (20:42)
[2017-12-12] MEDS: HYDROCODONE/APAP 5-325MG TABLET PO PRN (21:29)
--- NOTE | 2017-12-12 22:42 | NUR ---
PT NOTED SINUS LAURA ON TETRYL WRINGER OPERATOR DOWN TO 30-32 BPM. STATED "I HAD THIS BEFORE". DR WOODRUFF WAS NOTIFIED AND ADVISED TO CONTINUE MONITORING PT AT THIS TIME. NO NEW ORDERS. CONTINUE TO MONITOR. CALL LIGHT PLACED WITHIN REACH.
[2017-12-13] VITALS: BP 121/50
[2017-12-13] MEDS: HYDROCODONE/APAP 5-325MG TABLET PO PRN ×3 (01:40→12:36)
[2017-12-13] MEDS: MORPHINE SULFATE 4 MG/1 ML DISP.SYRIN IV PRN ×2 (03:37→06:41)
[2017-12-13 04:40] VITALS: BP 120/56
--- NOTE | 2017-12-13 06:00 | NUR ---
PT'S HR INCREASED TO 55 BPM. DENIES ANY SOB OR S/S OF HYPER/HYPOGLYCEMIA SYMPTOMS. SINUS LAURA STILL PRESENT WITH UP TO 4.2 SEC PAUSES. STATES PAIN STILL CONTINUOUS TO LOWER LEFT ABDOMEN. PT REMINDED TO INFORM STAFF FOR ASSISTANCE. CONTINUE TO MONITOR. CALL LIGHT PLACED WITHIN REACH.
[2017-12-13] MEDS: PANTOPRAZOLE SODIUM 40 MG TABLET.DR PO SCH (06:44)
[2017-12-13] MEDS: LEVOTHYROXINE SODIUM 100 MCG TABLET PO SCH (06:44)
[2017-12-13] MEDS: BLOOD SUGAR DIAGNOSTIC 1 EACH STRIP VI SCH ×4 (06:50→20:00)
--- NOTE | 2017-12-13 07:10 | NUR ---
Received client sitting by the edge of the bed stating he was in pain and had be uncomfortable throughout the night. Client is noted to have no respiratory distress or SOB. Noted with discomfort mostly in the anterior bilateral sides of the abdomen. Bed is at the lowest position for safety and call light within reach for assistance. It was mentioned to the client that I would look over his medications orders
--- NOTE | 2017-12-13 07:45 | NUR ---
Rechecked client's Accu ck and noted to be 117. No insulin coverage needed
[2017-12-13] MEDS: INSULIN REGULAR, HUMAN 300 UNIT/3 ML VIAL SQ PRN ×4 (08:24→19:56)
[2017-12-13] MEDS: MIRALAX 17 GM POWD.PACK PO SCH (08:25)
[2017-12-13] MEDS: TAMSULOSIN HCL 0.4 MG CAP.SR.24H PO SCH ×2 (08:25→20:00)
[2017-12-13] MEDS: CHOLECALCIFEROL 1,000 UNIT TABLET PO SCH (08:25)
[2017-12-13] MEDS ORDERED: MORPHINE SULFATE 4 MG/1 ML DISP.SYRIN IV PRN (09:00)
[2017-12-13 09:10] LABS: BASOPHILS % (AUTO) 0.1 % (0.0-2.0); EOSINOPHILS % (AUTO) 0.1 % (0.0-7.0); HEMATOCRIT 32.4 % (36.7-47.1); LYMPHOCYTES % (AUTO) 12.1 % (20.5-51.5); MEAN CORPUSCULAR HEMOGLOBIN 33.4 uug (23.8-33.4); MEAN CORPUSCULAR HGB CONC 34 g/dL (32.5-36.3); MEAN CORPUSCULAR VOLUME 98.5 fL (73.0-96.2); MONOCYTES # (AUTO) 0.5 K/uL (2.0-10.0); MONOCYTES % (AUTO) 5.9 % (0.0-11.0); NEUTROPHILS # (AUTO) 6.8 K/uL (1.8-8.9); NEUTROPHILS % (AUTO) 81.8 % (38.5-71.5); PLATELET COUNT (AUTO) 184 K/uL (152-348); RED BLOOD CELL COUNT(AUTO) 3.29 MIL/uL (4.06-5.63); WHITE BLOOD COUNT (AUTO) 8.3 K/uL (3.6-10.2)
[2017-12-13 09:28] LABS: CREATININE 2.6 mg/dL (0.6-1.3); MAGNESIUM 2.2 mg/dL (1.8-2.4); PHOSPHOROUS 3.3 mg/dL (2.5-4.9); POTASSIUM 4.6 mmol/L (3.5-5.1)
[2017-12-13] MEDS ORDERED: HYDROMORPHONE 1 MG/1 ML DISP.SYRIN IV PRN (09:30)
--- NOTE | 2017-12-13 10:00 | NUR ---
Orders from for stat KUB and Abdomen series. Noted and carried out Addendum: 12/13/17 at 1925 by ARSENIO JONES RN New orders from Primary doctor for Dilaudid
[2017-12-13] MEDS: HYDROMORPHONE 2 MG/1 ML DISP.SYRIN IV PRN ×5 (10:06→22:53)
[2017-12-13] MEDS ORDERED: FUROSEMIDE 20 MG/2 ML VIAL IV ONE (10:15)
[2017-12-13 11:43] VITALS: BP 115/35
[2017-12-13 16:00] VITALS: BP 123/45
--- NOTE | 2017-12-13 16:00 | NUR ---
End of shift notes: Client has been compliant with all nursing care. IV line is hep lock, no IV hydration or ATB running at this time. Client states 5/10 pain levels but tolerable and comfortable. Client is noted to be sitting by the edge of the bed and using his laptop with his head phones on. No apparent signs and symptoms of SOB or distress. The bed is at the lowest position with the HOB flat. Client has been able to verbalize all his needs throughout the day.
--- NOTE | 2017-12-13 19:23 | NUR ---
PT IN ROOM ALERT AWAKE ON THE PHONE IN NO ACUTE DISTRESS. IV SITE INTACT AND PAIN NOTED 5/10 GENERALIZED. RECOIL SPRING WINDER STILL NOTED SINUS LAURA AT 46 BPM. NO NEW ORDERS AT THIS TIME. NO S/S OF HYPER/HYPOGLYCEMIA. CALL LIGHT PLACED WITHIN REACH. CONTINUE TO MONITOR.
[2017-12-13] MEDS: DOCUSATE SODIUM 100 MG CAPSULE PO SCH (20:00)
[2017-12-13 20:10] VITALS: BP 120/51
[2017-12-13] MEDS: ATORVASTATIN 10 MG TABLET PO SCH (20:44)
--- NOTE | 2017-12-13 23:00 | NUR ---
PT SEEN BY DR CHINO TYSON
[2017-12-14] VITALS (7 sets, daily range): BP systolic 114–129; BP diastolic 37–67
--- NOTE | 2017-12-14 01:00 | NUR ---
PT ALERT AWAKE AND MAINTAINS SINUS LAURA WITH 30-40 BPM. NO S/S OF ACUTE DISTRESS. CONTINUES TO STATE OCCASIONAL PAIN TO LEFT LOWER ABDOMEN. CONTINUE TO MONITOR. STATES "I FEEL OK'. CALL LIGHT PLACED WITHIN REACH. REMINDED PT TO INFORM STAFF FOR ANY DIZZINESS, DIZZINESS, OR CHEST PAIN.
[2017-12-14] MEDS: HYDROMORPHONE 2 MG/1 ML DISP.SYRIN IV PRN ×6 (01:55→23:04)
--- NOTE | 2017-12-14 05:00 | NUR ---
PT IN ROOM ALERT IN NO ACUTE DISTRESS. DENIES ANY CHEST PAIN OR DIZZINESS. MANAGER CHEMISTRY SHOWS CONTINUED SINUS LAURA WITH PERIODS OF JUNCTIONAL RHYTHMS AND PAUSES UP TO 6 SECONDS. REMINDED PT TO INFORM STAFF FOR ANY S/S OF ACUTE DISTRESS. PT VERBALIZED "THIS IS STILL NORMAL FOR ME". BP 125/62. HR 33 R 17 T 98.6 O2 SAT 98% RA. CONTINUE TO MONITOR. PT REQUESTING NEXT PAIN MEDICATION AVAILABILITY.
[2017-12-14] MEDS: LEVOTHYROXINE SODIUM 100 MCG TABLET PO SCH (06:04)
[2017-12-14] MEDS: PANTOPRAZOLE SODIUM 40 MG TABLET.DR PO SCH (06:04)
[2017-12-14 06:27] LABS: BASOPHILS % (AUTO) 0.4 % (0.0-2.0); EOSINOPHILS # (AUTO) 0.1 K/uL (0.0-0.7); EOSINOPHILS % (AUTO) 1.2 % (0.0-7.0); HEMATOCRIT 32.5 % (36.7-47.1); HEMOGLOBIN 10.8 g/dL (12.5-16.3); LYMPHOCYTES # (AUTO) 1.8 K/uL (20.0-40.0); LYMPHOCYTES % (AUTO) 23.8 % (20.5-51.5); MEAN CORPUSCULAR HEMOGLOBIN 32.7 uug (23.8-33.4); MEAN CORPUSCULAR HGB CONC 33 g/dL (32.5-36.3); MEAN CORPUSCULAR VOLUME 98.4 fL (73.0-96.2); MONOCYTES # (AUTO) 0.6 K/uL (2.0-10.0); MONOCYTES % (AUTO) 7.7 % (0.0-11.0); NEUTROPHILS % (AUTO) 66.9 % (38.5-71.5); PLATELET COUNT (AUTO) 199 K/uL (152-348); RED BLOOD CELL COUNT(AUTO) 3.31 MIL/uL (4.06-5.63); WHITE BLOOD COUNT (AUTO) 7.5 K/uL (3.6-10.2)
[2017-12-14] MEDS: BLOOD SUGAR DIAGNOSTIC 1 EACH STRIP VI SCH ×4 (06:31→20:54)
[2017-12-14 06:38] LABS: BILIRUBIN,TOTAL 0.5 mg/dL (0.2-1.0); CREATININE 2.3 mg/dL (0.6-1.3); MAGNESIUM 2.3 mg/dL (1.8-2.4); PHOSPHOROUS 3.3 mg/dL (2.5-4.9); POTASSIUM 4.6 mmol/L (3.5-5.1); TOTAL PROTEIN, SERUM 7.2 g/dL (6.4-8.2)
[2017-12-14] MEDS: TAMSULOSIN HCL 0.4 MG CAP.SR.24H PO SCH ×2 (08:40→20:57)
[2017-12-14] MEDS: CHOLECALCIFEROL 1,000 UNIT TABLET PO SCH (08:40)
[2017-12-14] MEDS: MIRALAX 17 GM POWD.PACK PO SCH (09:00)
[2017-12-14] MEDS ORDERED: FUROSEMIDE 20 MG/2 ML VIAL IV ONE (11:30)
--- NOTE | 2017-12-14 11:49 | NUR ---
PT BLOOD SUGAR 131, PT REFUSES INSULIN AT THIS TIME. PT STATES, " I USUALLY TAKE INSULIN AT 135 AND UP, I DON'T NEED IT NOW". CONTINUE TO MONITOR PT.
--- NOTE | 2017-12-14 12:07 | NUR ---
SPOKE TO RN ANTONIO REGARDING GB ULTRASOUND. PT IS NOT NPO AND NEEDS TO BE NPO TO EVALUATE GB. NPO NECESSARY FOR OPTIMAL IMAGING, LIMITS IMAGE OBSTRUCTING GAS AND GB NOT CONTRACTED. RN PUTTING PT NPO AFTER MIDNIGHT AND US WILL BE DONE TMRW AM.
[2017-12-14] MEDS: INSULIN REGULAR, HUMAN 300 UNIT/3 ML VIAL SQ PRN ×2 (17:07→20:57)
--- NOTE | 2017-12-14 18:44 | NUR ---
PT OBSERVED RESTING IN BED WITH NO SIGNS OF RESPIRATORY DISTRESS. STABLE AT THIS TIME. CALM, MEDICATION COMPLAINT. BED AT LOWEST LOCKED POSITION, CALL LIGHT WITH IN REACH. CONTINUE TO MONITOR.
--- NOTE | 2017-12-14 19:25 | NUR ---
Received pt in bed. asleep, but arouse to verbal stimuli. AxO x4. Sinus Bebeto on Tele. Asymptomatic. pt started ambulating back and forth the hallway without difficulty.
[2017-12-14] MEDS: DOCUSATE SODIUM 100 MG CAPSULE PO SCH (20:57)
[2017-12-14] MEDS: ATORVASTATIN 10 MG TABLET PO SCH (20:57)
[2017-12-15] VITALS: BP 104/59
[2017-12-15] MEDS: HYDROMORPHONE 2 MG/1 ML DISP.SYRIN IV PRN ×3 (02:20→09:17)
[2017-12-15 04:00] VITALS: BP 119/56
--- NOTE | 2017-12-15 06:00 | NUR ---
ALERT AND ORIENTED X4. PT IN NO ACUTE DISTRESS. DILAUDID GIVEN PER PRN PER ORDER FOR PAIN WITH MINIMAL EFFECT. DENIES ANY SOB. AMBULATE AD JUAN MIGUEL. PT WITH MINIMAL HEMATURIA WHEN URINATING. VS STABLE. SINUS LAURA ON TELE. 30'S. PT ASYMPTOMATIC. NPO POST MIDNIGHT. FOR US GALLBLADDER IN AM. CONTINUE CURRENT PLAN OF CARE.
[2017-12-15] MEDS: LEVOTHYROXINE SODIUM 100 MCG TABLET PO SCH (06:10)
[2017-12-15] MEDS: PANTOPRAZOLE SODIUM 40 MG TABLET.DR PO SCH (06:10)
[2017-12-15] MEDS: BLOOD SUGAR DIAGNOSTIC 1 EACH STRIP VI SCH ×4 (06:11→21:41)
--- NOTE | 2017-12-15 07:30 | NUR ---
Received client in sitting in bed, alert and oriented times 4. Client is asking to find out the time for the US gall bladder and to make sure to save his breakfast in case he can eat after. Bed at lowest position for safety and call light within reach for assistance. Client is able to verbalize all need. Ambulatory to RR. No IV hydration running at this time. Client is in room air.
[2017-12-15] MEDS: CHOLECALCIFEROL 1,000 UNIT TABLET PO SCH (08:37)
[2017-12-15] MEDS: MIRALAX 17 GM POWD.PACK PO SCH (08:38)
[2017-12-15] MEDS: TAMSULOSIN HCL 0.4 MG CAP.SR.24H PO SCH ×2 (08:38→21:10)
--- NOTE | 2017-12-15 08:40 | NUR ---
Client refused Miralax, stating he only wants to take Colace.
--- NOTE | 2017-12-15 08:50 | NUR ---
Consult with MD taking place right now
[2017-12-15 09:38] LABS: BASOPHILS % (AUTO) 0.6 % (0.0-2.0); EOSINOPHILS # (AUTO) 0.2 K/uL (0.0-0.7); EOSINOPHILS % (AUTO) 2.5 % (0.0-7.0); HEMATOCRIT 33.1 % (36.7-47.1); HEMOGLOBIN 11.1 g/dL (12.5-16.3); LYMPHOCYTES # (AUTO) 2.1 K/uL (20.0-40.0); MEAN CORPUSCULAR HEMOGLOBIN 32.8 uug (23.8-33.4); MEAN CORPUSCULAR HGB CONC 34 g/dL (32.5-36.3); MEAN CORPUSCULAR VOLUME 97.8 fL (73.0-96.2); MONOCYTES # (AUTO) 0.7 K/uL (2.0-10.0); MONOCYTES % (AUTO) 10.3 % (0.0-11.0); NEUTROPHILS # (AUTO) 3.7 K/uL (1.8-8.9); NEUTROPHILS % (AUTO) 55.6 % (38.5-71.5); PLATELET COUNT (AUTO) 228 K/uL (152-348); RED BLOOD CELL COUNT(AUTO) 3.38 MIL/uL (4.06-5.63); WHITE BLOOD COUNT (AUTO) 6.7 K/uL (3.6-10.2)
[2017-12-15] MEDS ORDERED: FUROSEMIDE 20 MG/2 ML VIAL IV ONE (09:45)
[2017-12-15 09:54] LABS: BILIRUBIN,TOTAL 0.5 mg/dL (0.2-1.0); CREATININE 2.1 mg/dL (0.6-1.3); PHOSPHOROUS 3.2 mg/dL (2.5-4.9); POTASSIUM 3.9 mmol/L (3.5-5.1); TOTAL PROTEIN, SERUM 7.1 g/dL (6.4-8.2)
[2017-12-15] MEDS: HYDROCODONE/APAP 10-325 MG TABLET PO PRN ×2 (11:51→21:10)
[2017-12-15 11:53] VITALS: BP 144/45
--- NOTE | 2017-12-15 11:58 | NUR ---
Client is upset that he has not been able to eat breakfast and that there has been no US done yet. Explained to client that the US mathematical engineering technician is on his was. Charge nurse is aware. Client verbalized that he would leave and that he could deal with the pain and eat at home. [place] was offered for pain control. US extension was dialed three times throughout the morning with no one picking up. Around 1115, caron hernandez was called and asked to have come stephan and follow up on the US gallbladder, I was informed that the supervisory examiner was going to be contacted
--- NOTE | 2017-12-15 12:36 | NUR ---
US of gall bladder done. Provided breakfast tray and ordered the client his lunch tray
[2017-12-15 15:07] VITALS: BP 141/40
--- NOTE | 2017-12-15 19:19 | NUR ---
End of shift notes: Client is in bed with no apparent signs and symptoms of SOB, distress or discomfort. No pain medication given since noon, client stated that [place] does nothing for him, that it's like taking Tylenol. Client is in bed noted in a high fowlers position, dvt pumps in place. Client has been compliant with all nursing care, he denied to take any pain meds around 1600hrs and on continuously every hour and client still refused.
--- NOTE | 2017-12-15 20:00 | NUR ---
PATIENT AMBULATING AROUND UNIT, NO SOB ON EXERTION,REMAINS SINUS LAURA 42BPM ON TELE, ACQUISITION MARKETING COORDINATOR REPORTED,PATIENT HAD EPISODE OF 4.2 SEC PAUSE AROUND 1914.CONTINUE CLOSELY MONITOR.
[2017-12-15 20:29] VITALS: BP 131/63
[2017-12-15] MEDS: DOCUSATE SODIUM 100 MG CAPSULE PO SCH (21:10)
[2017-12-15] MEDS: ATORVASTATIN 10 MG TABLET PO SCH (21:10)
[2017-12-15] MEDS: INSULIN REGULAR, HUMAN 300 UNIT/3 ML VIAL SQ PRN (21:44)
[2017-12-16 00:31] VITALS: BP 125/62
[2017-12-16 04:00] VITALS: BP 110/52
[2017-12-16] MEDS: LEVOTHYROXINE SODIUM 100 MCG TABLET PO SCH (06:11)
[2017-12-16] MEDS: PANTOPRAZOLE SODIUM 40 MG TABLET.DR PO SCH (06:11)
[2017-12-16 06:18] LABS: BASOPHILS % (AUTO) 0.5 % (0.0-2.0); EOSINOPHILS # (AUTO) 0.2 K/uL (0.0-0.7); EOSINOPHILS % (AUTO) 2.6 % (0.0-7.0); HEMATOCRIT 31.8 % (36.7-47.1); HEMOGLOBIN 10.8 g/dL (12.5-16.3); LYMPHOCYTES % (AUTO) 30.4 % (20.5-51.5); MEAN CORPUSCULAR HEMOGLOBIN 33.5 uug (23.8-33.4); MEAN CORPUSCULAR HGB CONC 34 g/dL (32.5-36.3); MEAN CORPUSCULAR VOLUME 98.4 fL (73.0-96.2); MONOCYTES # (AUTO) 0.8 K/uL (2.0-10.0); NEUTROPHILS # (AUTO) 3.4 K/uL (1.8-8.9); NEUTROPHILS % (AUTO) 53.5 % (38.5-71.5); PLATELET COUNT (AUTO) 222 K/uL (152-348); RED BLOOD CELL COUNT(AUTO) 3.23 MIL/uL (4.06-5.63); WHITE BLOOD COUNT (AUTO) 6.5 K/uL (3.6-10.2)
[2017-12-16] MEDS: BLOOD SUGAR DIAGNOSTIC 1 EACH STRIP VI SCH ×2 (06:32→11:09)
[2017-12-16 06:36] LABS: BILIRUBIN,TOTAL 0.5 mg/dL (0.2-1.0); MAGNESIUM 1.8 mg/dL (1.8-2.4); PHOSPHOROUS 4.2 mg/dL (2.5-4.9); POTASSIUM 4.5 mmol/L (3.5-5.1); TOTAL PROTEIN, SERUM 6.4 g/dL (6.4-8.2)
--- NOTE | 2017-12-16 06:51 | NUR ---
PATIENT STATED ORALLY PAIN MEDS NOT WORK FOR HIM,PLAN OF CARE EXPLAINED,PT TO OFF IV PAIN MED IN ORDER TO SEE IF PAUSES IMPROVE/RESOLVE PER MD.
[2017-12-16] MEDS: MIRALAX 17 GM POWD.PACK PO SCH (07:59)
[2017-12-16] MEDS: CHOLECALCIFEROL 1,000 UNIT TABLET PO SCH (07:59)
[2017-12-16] MEDS: TAMSULOSIN HCL 0.4 MG CAP.SR.24H PO SCH (07:59)
[2017-12-16] MEDS: INSULIN REGULAR, HUMAN 300 UNIT/3 ML VIAL SQ PRN (11:11)
--- NOTE | 2017-12-16 12:50 | NUR ---
Pt left the floor for discharge. Discharge instructions provided and discussed with the pt. Meds reconciled by MD and reviewed with the pt. Pt verbalized understanding of discharge instructions and medications. All belongings reviewed and brought with the pt. HL right antecubital removed. Pt stable and nad noted upon discharge.
== END 2017-12-16 12:54 | disposition home or self-care (01) | DRG 694 ==
LOC: ER 22:48 → TELE 12-10 07:57
PROVIDERS: ADMIT Internal Medicine
PROC: 0T778DZ Dilation of Left Ureter with Intraluminal Device, Via Natural or Artificial Opening Endoscopic (ICD-10-PCS; principal; 2017-12-12 12:08)
DX: N13.0 Hydronephrosis with ureteropelvic junction obstruction (principal); N17.0 Acute kidney failure with tubular necrosis; E11.21 Type 2 diabetes mellitus with diabetic nephropathy; E11.40 Type 2 diabetes mellitus with diabetic neuropathy, unspecified; I49.5 Sick sinus syndrome; E11.22 Type 2 diabetes mellitus with diabetic chronic kidney disease; J98.11 Atelectasis; I27.20 Pulmonary hypertension, unspecified; N20.0 Calculus of kidney; Z87.442 Personal history of urinary calculi; Z79.84 Long term (current) use of oral hypoglycemic drugs; E78.5 Hyperlipidemia, unspecified; E03.9 Hypothyroidism, unspecified; M10.9 Gout, unspecified; H40.9 Unspecified glaucoma; G52.2 Disorders of vagus nerve; K80.20 Calculus of gallbladder without cholecystitis without obstruction; D64.9 Anemia, unspecified; Z82.49 Family history of ischemic heart disease and other diseases of the circulatory system; N40.0 Benign prostatic hyperplasia without lower urinary tract symptoms; N18.9 Chronic kidney disease, unspecified
CPT/HCPCS: 36415; 70030-TC; 71045; 76000; 76770; 83735; 84100; 84443; 85025; 93005; 93307; A4663; C1758; C1876; J0690; J1100; J1170; J1815; J1940; J2250; J2270; J2405; J3010; J3490; J3590; J7030; Q9967

== ENCOUNTER 2018-11-06 12:32 | Emergency (ER) | payer MEDICARE, OTHER ==
[~2018-11-06] VITALS: Ht 180.3 cm; Wt 82.6 kg
[~2018-11-06 12:32] MED LIST changes: +ALLO300T2 PO; +ATOR10TA PO; +BUME1TAB4 PO; +IRON PO; +METF-442 PO; -METF10002 PO; +POTA10TA15 PO; +VALA500T34 PO
[2018-11-06] MEDS ORDERED: HYDROCODONE/APAP 10-325 MG TABLET ONE (12:56)
[2018-11-06] MEDS ORDERED: HYDROCODONE/APAP 10-325 MG TABLET PO ONE (13:00)
--- NOTE | 2018-11-06 13:58 | NUR ---
Patient discharged to home in stable conditon. Written and verbal after care instructions given. Patient verbalizes understanding of instructions. Pt walked out of Er using own cane.
[2018-11-06 14:00] VITALS: BP 149/75
== END 2018-11-06 14:01 | disposition home or self-care (01) ==
LOC: ER 12:32
DX: M17.11 Unilateral primary osteoarthritis, right knee (principal); E11.9 Type 2 diabetes mellitus without complications; Z90.89 Acquired absence of other organs; Z79.899 Other long term (current) drug therapy
CPT/HCPCS: 73502; A4663

== ENCOUNTER 2019-03-03 22:08 | Emergency (ER) | payer MEDICARE, OTHER ==
[~2019-03-03] VITALS: Ht 177.8 cm; Wt 82.6 kg
--- NOTE | 2019-03-03 22:14 | NUR ---
Patient ambulated with stable gait. Patient came in for c/o bilateral ear pain/earache. Patient usually swims 5-6 days a week. Respiratory even and unlabored, no cough, no sob.
--- NOTE | 2019-03-03 22:21 | NUR ---
ERMD at bedside for MSE
[2019-03-03] MEDS ORDERED: DEXAMETHASONE 4 MG TABLET ONE (22:28)
[2019-03-03] MEDS ORDERED: PSEUDOEPHEDRINE HCL 30 MG TABLET ONE (22:29)
[2019-03-03] MEDS ORDERED: PSEUDOEPHEDRINE HCL 30 MG TABLET PO ONE (22:30)
[2019-03-03] MEDS ORDERED: DEXAMETHASONE 4 MG TABLET PO ONE (22:30)
[2019-03-03 22:37] VITALS: BP 100/68
== END 2019-03-03 22:37 | disposition home or self-care (01) ==
LOC: ER 22:09
DX: H69.92 Unspecified Eustachian tube disorder, left ear (principal); E11.9 Type 2 diabetes mellitus without complications; Z90.89 Acquired absence of other organs; Z79.899 Other long term (current) drug therapy
CPT/HCPCS: 99283; J8540; A4663

== ENCOUNTER 2019-11-23 16:18 | Emergency (ER) | payer MEDICARE, OTHER ==
[~2019-11-23] VITALS: Ht 180.3 cm; Wt 77.1 kg
[~2019-11-23 16:18] MED LIST changes: -BUME1TAB4 PO; +BUME1TAB8 PO
[2019-11-23] MEDS ORDERED: HYDROCODONE/APAP 5-325MG TABLET PO ONE (17:15)
[2019-11-23] MEDS ORDERED: HYDROCODONE/APAP 5-325MG TABLET ONE (17:23)
--- NOTE | 2019-11-23 18:27 | NUR ---
Patient discharged to home in stable condition. Written and verbal after care instructions given to patient. Patient verbalizes understanding & compliance of instructions.
== END 2019-11-23 18:28 | disposition home or self-care (01) ==
LOC: ER 16:26
DX: M25.561 Pain in right knee (principal); E03.9 Hypothyroidism, unspecified; R00.1 Bradycardia, unspecified; I87.2 Venous insufficiency (chronic) (peripheral); E78.5 Hyperlipidemia, unspecified; E11.9 Type 2 diabetes mellitus without complications; Z90.89 Acquired absence of other organs; Z79.899 Other long term (current) drug therapy; W10.9XXA Fall (on) (from) unspecified stairs and steps, initial encounter; Y93.89 Activity, other specified; Y92.89 Other specified places as the place of occurrence of the external cause; Y99.8 Other external cause status
CPT/HCPCS: 73502; 73551; 93005; A4663

== ENCOUNTER 2023-10-20 14:20 | Emergency (ER) | payer MEDICARE, OTHER ==
[2023-10-20] MEDS ORDERED: SULF1TAB48 PO (15:24)
[2023-10-20] MEDS ORDERED: CEPH500T PO (15:24)
[2023-10-20] MEDS ORDERED: DIPH103G TP (15:25)
== END 2023-10-20 15:40 | disposition home or self-care (01) ==
LOC: ER 14:20
DX: L03.116 Cellulitis of left lower limb (principal); L03.115 Cellulitis of right lower limb; E11.9 Type 2 diabetes mellitus without complications; Z98.890 Other specified postprocedural states; Z79.899 Other long term (current) drug therapy